=== PATIENT | female | born 1995 | race Caucasian/White ===

== ENCOUNTER 2019-01-09 18:15 | Emergency (ER) | payer OTHER ==
[~2019-01-09] VITALS: Ht 172.7 cm; Wt 62.0 kg
[~2019-01-09 18:15] MED LIST: IBUP400T18 PO; PHEN100T82 PO; SULF1TAB24 PO
--- NOTE | 2019-01-09 18:18 | ED.ADGEN ---
Past History Past Medical History: No Pertinent History, Depression, Ovarian Cyst, UTI Past Surgical History: Tonsillectomy, Other Additional Past Surgical Histo: tear ducts; wisdom teeth; lt knee repair of meniscus with ham string graft. Smoking: Non-smoker Alcohol Use: None Drug Use: None Adult General Chief Complaint Chief Complaint ".. Dr. Sultana office sent me over for a CT of my abdomen .. to make sure I don't have an appendix..." [facility] HPI Patient is a 23 year old female who presents with above hx and complaints of abdomen pain epigastric and right lower quadrant. Patient denies any intake bad food. Patient denies any specific ill contacts. Patient denies any travel. Patient denies any history of immunosuppression. Patient has had 1 previous . Patient does have history of some dysuria but was told she did not have a UTI. Patient has had a normal stool today. No history of trauma. No history of colitis with her family members. Does have cramping with her periods. Patient normally healthy. Follows with Dr. Sultana. Review of Systems Review of Systems Constitutional: Denies fever or chills [] Eyes: Denies change in visual acuity, redness, or eye pain [] HENT: Denies nasal congestion or sore throat [] Respiratory: Denies cough or shortness of breath [] Cardiovascular: No additional information not addressed in HPI [] GI: Complaints epigastric and right lower abdominal pain,. Denies , vomiting, bloody stools or diarrhea [] Pt. has had some nausea today : Denies dysuria or hematuria [] Musculoskeletal: Denies back pain or joint pain [] Integument: Denies rash or skin lesions [] Neurologic: Denies headache, focal weakness or sensory changes [] Endocrine: Denies polyuria or polydipsia [] All other systems were reviewed and found to be within normal limits, except as documented in this note. Family History Family History Noncontributory Current Medications Current Medications Current Medications Medications (Trade) Dose Ordered Sig/Lisa Start Time Stop Time Status Last Admin Dose Admin Ceftriaxone Sodium 1 gm/ Sodium Chloride 50 ml @ 100 mls/hr 1X ONCE 01/09/19 21:15 01/09/19 21:44 DC 01/09/19 21:47 100 MLS/HR Ceftriaxone Sodium (Rocephin) 1 gm STK-MED ONCE 01/09/19 21:40 01/09/19 21:41 DC Famotidine (Pepcid Vial) 20 mg 1X ONCE 01/09/19 21:45 01/09/19 21:46 DC 01/09/19 21:46 20 MG Iohexol (Omnipaque 240 Mg/ml) 30 ml 1X ONCE 01/09/19 19:45 01/09/19 19:46 DC 01/09/19 20:41 30 ML Iohexol (Omnipaque 300 Mg/ml) 75 ml 1X ONCE 01/09/19 19:45 01/09/19 19:46 DC 01/09/19 20:40 75 ML Lactated Ringer's 1,000 ml @ 1,000 mls/hr Q1H 01/09/19 18:25 01/09/19 19:24 DC 01/09/19 18:50 1,000 MLS/HR Magnesium Hydroxide (Milk Of Magnesia) 2,400 mg 1X ONCE 01/09/19 21:15 01/09/19 21:16 DC 01/09/19 21:46 2,400 MG Sodium Chloride 50 ml @ As Directed STK-MED ONCE 01/09/19 21:39 01/09/19 21:40 DC Allergies Allergies Allergies Coded Allergies Type Severity Reaction Last Updated Verified No Known Drug Allergies 08/20/14 No Physical Exam Physical Exam Constitutional: Well developed, well nourished, no acute distress, non-toxic appearance. [] HENT: Normocephalic, atraumatic, bilateral external ears normal, oropharynx moist, no oral exudates, nose normal. [] Eyes: PERRLA, EOMI, conjunctiva normal, no discharge. [] Neck: Normal range of motion, no tenderness, supple, no stridor. [] Cardiovascular:Heart rate regular rhythm, no murmur [] Lungs & Thorax: Bilateral breath sounds clear to auscultation [] Abdomen: Bowel sounds normal, soft, mild epigastric and mid right abdomen tenderness, no masses, no pulsatile masses. [] Declines vaginal or rectal exams this time. Abdomen is mildly distended Skin: Warm, dry, no erythema, no rash. [] Back: No tenderness, no CVA tenderness. [] Extremities: No tenderness, no cyanosis, no clubbing, ROM intact, no edema. [] No psoas sign. Patient is able to jump up and down without pain Neurologic: Alert and oriented X 3, normal motor function, normal sensory function, no focal deficits noted. [] Psychologic: Affect anxious, judgement normal, mood normal. [] Current Patient Data Vital Signs Vital Signs Date Time Temp Pulse Resp B/P (MAP) Pulse Ox O2 Delivery O2 Flow Rate FiO2 01/09/19 22:05 98.2 73 16 113/67 (82) 99 Room Air Lab Results Laboratory Tests Test 01/09/19 18:43 01/09/19 18:47 01/09/19 18:56 White Blood Count 3.7 x10^3/uL (4.0-11.0) L Red Blood Count 5.45 x10^6/uL (3.50-5.40) H Hemoglobin 14.2 g/dL (12.0-15.5) Hematocrit 43.0 % (36.0-47.0) Mean Corpuscular Volume 79 fL (79-100) Mean Corpuscular Hemoglobin 26 pg (25-35) Mean Corpuscular Hemoglobin Concent 33 g/dL (31-37) Red Cell Distribution Width 15.6 % (11.5-14.5) H Platelet Count 197 x10^3/uL (140-400) Neutrophils (%) (Auto) 64 % (31-73) Lymphocytes (%) (Auto) 21 % (24-48) L Monocytes (%) (Auto) 14 % (0-9) H Eosinophils (%) (Auto) 1 % (0-3) Basophils (%) (Auto) 0 % (0-3) Neutrophils # (Auto) 2.4 x10^3uL (1.8-7.7) Lymphocytes # (Auto) 0.8 x10^3/uL (1.0-4.8) L Monocytes # (Auto) 0.5 x10^3/uL (0.0-1.1) Eosinophils # (Auto) 0.0 x10^3/uL (0.0-0.7) Basophils # (Auto) 0.0 x10^3/uL (0.0-0.2) Sodium Level 137 mmol/L (136-145) Potassium Level 3.8 mmol/L (3.5-5.1) Chloride Level 100 mmol/L (98-107) Carbon Dioxide Level 27 mmol/L (21-32) Anion Gap 10 (6-14) Blood Urea Nitrogen 16 mg/dL (7-20) Creatinine 0.8 mg/dL (0.6-1.0) Estimated GFR (Cockcroft-Gault) 88.9 Glucose Level 89 mg/dL (70-99) Calcium Level 9.1 mg/dL (8.5-10.1) Total Bilirubin 3.7 mg/dL (0.2-1.0) H Direct Bilirubin 0.2 mg/dL (0.0-0.2) Aspartate Amino Transferase (AST) 19 U/L (15-37) Alanine Aminotransferase (ALT) 20 U/L (14-59) Alkaline Phosphatase 58 U/L (46-116) Total Protein 7.5 g/dL (6.4-8.2) Albumin 4.1 g/dL (3.4-5.0) Amylase Level 27 U/L (25-115) Lipase 87 U/L (73-393) Urine Collection Type Void Urine Color Straw Urine Clarity Hazy Urine pH 6.5 Urine Specific [place] 1.025 Urine Protein 30 mg/dl (NEG-TRACE) Urine Glucose (UA) Neg mg/dL (NEG) Urine Ketones (Stick) Neg mg/dL (NEG) Urine Blood Neg (NEG) Urine Nitrite Neg (NEG) Urine Bilirubin Neg (NEG) Urine Urobilinogen Dipstick 2 mg/dL (0.2 mg/dL) Urine Leukocyte Esterase Small (NEG) Urine RBC Rare /HPF (0-2) Urine WBC 5-10 /HPF (0-4) Urine Squamous Epithelial Cells Mod /LPF Urine Bacteria Few /HPF (0-FEW) Urine Mucus Mod /LPF Urine Opiates Screen Neg (NEG) Urine Methadone Screen Neg (NEG) Urine Barbiturates Neg (NEG) Urine Phencyclidine Screen Neg (NEG) Urine Amphetamine/Methamphetamine Neg (NEG) Urine Benzodiazepines Screen Neg (NEG) Urine Cocaine Screen Neg (NEG) Urine Cannabinoids Screen Neg (NEG) Urine Ethyl Alcohol Neg (NEG) POC Urine HCG, Qualitative hcg negative (Negative) EKG EKG [] Radiology/Procedures Radiology/Procedures My interpretation of acute abd. shows no acute cardiopulmonary findings. No free air under the diaphragm. Nonspecific bowel gas pattern there is stool in the colon. CT of abdomen shows no acute surgical pathology. Appendix appears normal. There is right ovarian cyst 1.9- complex. There is possible ureterectasis due to UTI or congenital variant. No obvious acute surgical findings. See formal report for details. Course & Med Decision Making Course & Med Decision Making Pertinent Labs and Imaging studies reviewed. (See chart for details). Maintain on a clear fluid diet for the next 2 days. No solids or milk products. Must allow bowel rest. Follow-up [facility] for an ultrasound of right ovarian complex cyst. Take Keflex 500x3 times a day. Follow-up urinary cultures. Tylenol and ibuprofen for pain. Return if any concerns. Keep follow-up with Dr. Sultana. [] Final Impression Final Impression 1. Abdomen Pain 2. UTI 3. Constipation 4. Elevated Monocytes- Viral Syndrome 5. Possible ureterectasis 6. Corpus Luteum cyst 1.9 cm ? Rt. Ovary 7. Possible history consistent with endometriosis [] Dragon Disclaimer Dragon Disclaimer This electronic medical record was generated, in whole or in part, using a voice recognition dictation system. Dragon Disclaimer This chart was dictated in whole or in part using Voice Recognition software in a busy, high-work load, and often noisy Emergency Department environment. It may contain unintended and wholly unrecognized errors or omissions. Discharge Summary Visit Information Final Diagnosis Problems Medical Problems: (1) Pain in the abdomen Status: Acute Brief Hospital Course Allergies Allergies Coded Allergies Type Severity Reaction Last Updated Verified No Known Drug Allergies 08/20/14 No Vital Signs Vital Signs Date Time Temp Pulse Resp B/P (MAP) Pulse Ox O2 Delivery O2 Flow Rate FiO2 01/09/19 22:05 98.2 73 16 113/67 (82) 99 Room Air Lab Results Laboratory Tests Test 01/09/19 18:43 01/09/19 18:47 01/09/19 18:56 White Blood Count 3.7 x10^3/uL (4.0-11.0) Red Blood Count 5.45 x10^6/uL (3.50-5.40) Hemoglobin 14.2 g/dL (12.0-15.5) Hematocrit 43.0 % (36.0-47.0) Mean Corpuscular Volume 79 fL (79-100) Mean Corpuscular Hemoglobin 26 pg (25-35) Mean Corpuscular Hemoglobin Concent 33 g/dL (31-37) Red Cell Distribution Width 15.6 % (11.5-14.5) Platelet Count 197 x10^3/uL (140-400) Neutrophils (%) (Auto) 64 % (31-73) Lymphocytes (%) (Auto) 21 % (24-48) Monocytes (%) (Auto) 14 % (0-9) Eosinophils (%) (Auto) 1 % (0-3) Basophils (%) (Auto) 0 % (0-3) Neutrophils # (Auto) 2.4 x10^3uL (1.8-7.7) Lymphocytes # (Auto) 0.8 x10^3/uL (1.0-4.8) Monocytes # (Auto) 0.5 x10^3/uL (0.0-1.1) Eosinophils # (Auto) 0.0 x10^3/uL (0.0-0.7) Basophils # (Auto) 0.0 x10^3/uL (0.0-0.2) Sodium Level 137 mmol/L (136-145) Potassium Level 3.8 mmol/L (3.5-5.1) Chloride Level 100 mmol/L (98-107) Carbon Dioxide Level 27 mmol/L (21-32) Anion Gap 10 (6-14) Blood Urea Nitrogen 16 mg/dL (7-20) Creatinine 0.8 mg/dL (0.6-1.0) Estimated GFR (Cockcroft-Gault) 88.9 Glucose Level 89 mg/dL (70-99) Calcium Level 9.1 mg/dL (8.5-10.1) Total Bilirubin 3.7 mg/dL (0.2-1.0) Direct Bilirubin 0.2 mg/dL (0.0-0.2) Aspartate Amino Transf (AST/SGOT) 19 U/L (15-37) Alanine Aminotransferase (ALT/SGPT) 20 U/L (14-59) Alkaline Phosphatase 58 U/L (46-116) Total Protein 7.5 g/dL (6.4-8.2) Albumin 4.1 g/dL (3.4-5.0) Amylase Level 27 U/L (25-115) Lipase 87 U/L (73-393) Urine Collection Type Void Urine Color Straw Urine Clarity Hazy Urine pH 6.5 Urine Specific [place] 1.025 Urine Protein 30 mg/dl (NEG-TRACE) Urine Glucose (UA) Neg mg/dL (NEG) Urine Ketones (Stick) Neg mg/dL (NEG) Urine Blood Neg (NEG) Urine Nitrite Neg (NEG) Urine Bilirubin Neg (NEG) Urine Urobilinogen Dipstick 2 mg/dL (0.2 mg/dL) Urine Leukocyte Esterase Small (NEG) Urine RBC Rare /HPF (0-2) Urine WBC 5-10 /HPF (0-4) Urine Squamous Epithelial Cells Mod /LPF Urine Bacteria Few /HPF (0-FEW) Urine Mucus Mod /LPF Urine Opiates Screen Neg (NEG) Urine Methadone Screen Neg (NEG) Urine Barbiturates Neg (NEG) Urine Phencyclidine Screen Neg (NEG) Urine Amphetamine/Methamphetamine Neg (NEG) Urine Benzodiazepines Screen Neg (NEG) Urine Cocaine Screen Neg (NEG) Urine Cannabinoids Screen Neg (NEG) Urine Ethyl Alcohol Neg (NEG) Bedside Urine HCG, Qualitative hcg negative (Negative) Brief Hospital Course Ms. Wells is a 23 old female who presented with abdomen pain. Discharge Information Condition at Discharge: Improved, Stable Disposition/Orders: D/C to Home Dischare Medications Current Medications Lactated Ringer's 1,000 ml @ 1,000 mls/hr Q1H IV Last administered on at 18:50; Admin Dose 1,000 MLS/HR; Start 01/09/19 at 18:25; Stop 01/09/19 at 19: 24; Status DC Iohexol (Omnipaque 300 Mg/ml) 75 ml 1X ONCE IV Last administered on 01/09/19at 20:40; Admin Dose 75 ML; Start 01/09/19 at 19:45; Stop 01/09/19 at 19:46; Status DC Iohexol (Omnipaque 240 Mg/ml) 30 ml 1X ONCE PO Last administered on 01/09/19at 20:41; Admin Dose 30 ML; Start 01/09/19 at 19:45; Stop 01/09/19 at 19:46; Status DC Magnesium Hydroxide (Milk Of Magnesia) 2,400 mg 1X ONCE PO Last administered on 01/09/19at 21:46; Admin Dose 2,400 MG; Start 01/09/19 at 21:15; Stop 01/09/19 at 21:16; Status DC Ceftriaxone Sodium 1 gm/ Sodium Chloride 50 ml @ 100 mls/hr 1X ONCE IV Last administered on 01/09/19at 21:47; Admin Dose 100 MLS/HR; Start 01/09/19 at 21:15; Stop 01/09/19 at 21:44; Status DC Famotidine (Pepcid Vial) 20 mg 1X ONCE IVP Last administered on 01/09/19at 21:46 ; Admin Dose 20 MG; Start 01/09/19 at 21:45; Stop 01/09/19 at 21:46; Status DC Sodium Chloride 50 ml @ As Directed STK-MED ONCE .ROUTE ; Start 01/09/19 at 21:39 ; Stop 01/09/19 at 21:40; Status DC Ceftriaxone Sodium (Rocephin) 1 gm STK-MED ONCE .ROUTE ; Start 01/09/19 at 21:40 ; Stop 01/09/19 at 21:41; Status DC Active Scripts Active Keflex (Cephalexin) 500 Mg Capsule 500 Mg PO TID 7 Days Reported Bactrim Ds Tablet (Sulfamethoxazole/Trimethoprim) 1 Each Tablet 1 Tab PO BID Pyridium (Phenazopyridine Hcl) 100 Mg Tablet 100 Mg PO PRN Q8HRS PRN Ibuprofen 400 Mg Tablet 200 Mg PO PRN MARIANO SANCHEZ MD Jan 09, 2019 18:18
[2019-01-09] MEDS ORDERED: IV RINGERS SOLUTION,LACTATED 1,000 ML IV SCH (18:25)
[2019-01-09 18:59] LABS: BASO % 0 % (0-3); EOS % 1 % (0-3); HEMOGLOBIN 14.2 g/dL (12.0-15.5); LYMPH # 0.8 x10^3/uL (1.0-4.8); LYMPH % 21 % (24-48); MEAN CORPUSCULAR HEMOGLOBIN 26 pg (25-35); MEAN CORPUSCULAR HGB CONC 33 g/dL (31-37); MEAN CORPUSCULAR VOLUME 79 fL (79-100); MONO # 0.5 x10^3/uL (0.0-1.1); MONO % 14 % (0-9); NEUT # 2.4 x10^3uL (1.8-7.7); NEUT % 64 % (31-73); PLATELET COUNT 197 x10^3/uL (140-400); RED BLOOD COUNT 5.45 x10^6/uL (3.50-5.40); RED CELL DISTRIBUTION WIDTH 15.6 % (11.5-14.5); WHITE BLOOD COUNT 3.7 x10^3/uL (4.0-11.0)
[2019-01-09 19:16] LABS: ALBUMIN 4.1 g/dL (3.4-5.0); CALCIUM 9.1 mg/dL (8.5-10.1); CREATININE 0.8 mg/dL (0.6-1.0); DIRECT BILIRUBIN 0.2 mg/dL (0.0-0.2); GFR 88.9; POTASSIUM 3.8 mmol/L (3.5-5.1); TOTAL BILIRUBIN 3.7 mg/dL (0.2-1.0); TOTAL PROTEIN 7.5 g/dL (6.4-8.2)
[2019-01-09 19:38] LABS: BARBITURATES NEG (NEG); BENZODIAZEPINES NEG (NEG); CANNABINOIDS NEG (NEG); COCAINE NEG (NEG); METHADONE NEG (NEG); OPIATES NEG (NEG); PHENCYCLIDINE NEG (NEG)
[2019-01-09 19:42] LABS: BILIRUBIN,URINE NEG (NEG); CLARITY,URINE HAZY; COLOR,URINE STRAW; GLUCOSE,URINE NEG (NEG)
[2019-01-09 19:43] LABS: BACTERIA,URINE FEW /HPF (0-FEW); NITRITE,URINE NEG (NEG); RBC,URINE RARE /HPF (0-2); SQUAMOUS EPITHELIAL CELL,UR MOD /LPF; UROBILINOGEN,URINE 2 mg/dL (0.2 mg/dL)
[2019-01-09 19:45] LABS: AMPHETAMINE/METHAMPHETAMINE NEG (NEG)
[2019-01-09] MEDS ORDERED: IOHEXOL 300 MG/ML 75 ML VIAL. IV ONE (19:45)
[2019-01-09] MEDS ORDERED: IOHEXOL 240 MG/ML 50ML VIAL. PO ONE (19:45)
[2019-01-09] MEDS ORDERED: MAGNESIUM HYDROXIDE 2,400 MG/30 ML ORAL.SUSP. PO ONE (21:15)
--- NOTE | 2019-01-09 21:36 | RAD ---
CT study of the abdomen and pelvis with contrast Clinical indications: Right lower quadrant pain for 2 days which is worsening. TECHNIQUE: After IV infusion of 75 cc of Omnipaque 300, helical CT scanning of the abdomen and pelvis was performed. GI contrast was administered per mouth. PQRS compliance Statement One or more of the following individualized dose reduction techniques were utilized for this study: 1. Automated exposure control 2. Adjustment of the mA and/or kV according to patient size 3. Use of iterative reconstruction technique FINDINGS: The liver and spleen and pancreas are normal. The gallbladder is normal and no biliary ductal dilatation is seen. No adrenal mass is evident. Both kidneys are normal without hydronephrosis or hydroureter. Urinary bladder wall is smooth. There is an enhancing corpus luteum cyst of the right ovary which measures 1.9 cm in size. There is a small amount of free fluid within the cul-de-sac. There is dilatation of the left ureter down to the level of UVJ. No stone is evident. Similar finding is seen on the right side. The proximal ureter on either side is is not dilated and there is no hydronephrosis on either side. Therefore, this may represent ureterectasis secondary to urinary tract infection or could be a congenital variant. No focal aneurysmal dilatation of the abdominal aorta is seen. No enlarged abdominal or pelvic lymphadenopathy is evident. The appendix is normal. The terminal ileum is unremarkable. No obstructive bowel pattern is evident. No bowel wall thickening is seen. No free air or free fluid or mesenteric edema is seen. No lung base consolidation is evident. No lytic process is seen. IMPRESSION: There is dilatation of the mid and distal ureters on both sides down to the level of UVJ. Urinary bladder is not abnormally distended. No urinary tract stone is evident. Therefore, this may represent ureterectasis which may be seen with urinary tract infection or may represent a congenital variant. 1.9 cm enhancing corpus luteum of the right ovary. Small amount of physiologic free fluid is seen within the cul-de-sac. As with any cystic lesion, correlation with a test is recommended to exclude an ectopic . Electronically signed by: Eric Burton MD (01/09/2019 9:33 PM) [facility]
[2019-01-09] MEDS ORDERED: IV NORMAL SALINE 50ML 50 ML ONE (21:39)
[2019-01-09] MEDS ORDERED: cefTRIAXone SODIUM 1 GM VIAL ONE (21:40)
[2019-01-09] MEDS ORDERED: FAMOTIDINE 20 MG/2 ML VIAL IVP ONE (21:45)
--- NOTE | 2019-01-09 21:57 | RAD ---
2 view abdominal series and PA view chest x-ray Clinical indications: Right lower quadrant pain for 2 days which has worsened today. FINDINGS: No obstructive bowel pattern is seen. No air-fluid levels or free intraperitoneal air is seen. Osseous structures are intact. Multiple punctate calcifications are seen within the left side of the anatomic pelvis which are present within the colon and may be related to medication. Chest x-ray demonstrates no acute lung infiltrate or pleural effusion or pulmonary edema or pneumothorax. The heart size and pulmonary vasculature and mediastinum and both deepika are unremarkable. IMPRESSION: No acute radiographic abnormality. Electronically signed by: Eric Burton MD (01/09/2019 9:54 PM) [facility]
[2019-01-09] MEDS ORDERED: CEPH-264 PO (21:59)
[2019-01-09 22:05] VITALS: BP 113/67
== END 2019-01-09 22:15 | disposition home or self-care (01) ==
LOC: ER 18:15
DX: N39.0 Urinary tract infection, site not specified (principal); K59.00 Constipation, unspecified; B34.9 Viral infection, unspecified; D72.821 Monocytosis (symptomatic); N83.291 Other ovarian cyst, right side; F32.9 Major depressive disorder, single episode, unspecified; Z87.440 Personal history of urinary (tract) infections
CPT/HCPCS: 36415; 74022; 74177; 80048; 80076; 80307; 81001; 81025; 82150; 83690; 85025; 86705; 86709; 86803; 87340; 96365; 96375; 99284; J0696; J3490; J7120; Q9966; Q9967; 87086

== ENCOUNTER 2019-06-10 10:44 | Emergency (ER) | payer MEDICAID, OTHER ==
[~2019-06-10] VITALS: Ht 172.7 cm; Wt 62.0 kg
[~2019-06-10 10:44] MED LIST changes: +CEPH-264 PO
[2019-06-10 11:43] LABS: BACTERIA,URINE 0 /HPF (0-FEW); BILIRUBIN,URINE NEG (NEG); CLARITY,URINE HAZY; COLOR,URINE STRAW; GLUCOSE,URINE NEG (NEG); NITRITE,URINE NEG (NEG); RBC,URINE RARE /HPF (0-2); SQUAMOUS EPITHELIAL CELL,UR OCC /LPF; UROBILINOGEN,URINE 0.2 mg/dL (0.2 mg/dL); WBC,URINE 0 /HPF (0-4)
[2019-06-10] MEDS ORDERED: IV NORMAL SALINE 1,000ML 1,000 ML IV SCH (12:00)
--- NOTE | 2019-06-10 12:36 | PHYS DOC ---
Past History Past Medical History: No Pertinent History, Depression, Ovarian Cyst, UTI Past Surgical History: Tonsillectomy Additional Past Surgical Histo: tear ducts; wisdom teeth; lt knee repair of meniscus with ham string graft. Smoking: Non-smoker Alcohol Use: None Drug Use: None Adult General Chief Complaint Chief Complaint: VAGINAL BLEEDING HPI HPI Patient is a 23 year old female who presents with complaint of vaginal bleeding. The patient is approximately 8 weeks with last menstrual period April 25, 2019. Patient notes that she has taken a home test on multiple occasions over the past couple weeks which have been positive. The patient has an appointment with [facility] in 2 days, however she notes that she started having vaginal bleeding that started 2 days ago. She states that started with light spotting that initially slowed down, however she states that this morning she started having worsening bleeding comparable to a menstrual cycle. Has had light cramping. Denies any lightheadedness or dizziness and denies any abdominal pain currently. States that she has not had any previous complications with her prior . Denies any other symptoms currently. Review of Systems Review of Systems Constitutional: Denies fever or chills [] Eyes: Denies change in visual acuity, redness, or eye pain [] HENT: Denies nasal congestion or sore throat [] Respiratory: Denies cough or shortness of breath [] Cardiovascular: Denies chest pain or edema[] GI: Denies abdominal pain, nausea, vomiting, bloody stools or diarrhea [] : Vaginal bleeding, pelvic cramping[] Musculoskeletal: Denies back pain or joint pain [] Integument: Denies rash or skin lesions [] Neurologic: Denies headache, focal weakness or sensory changes [] All other systems were reviewed and found to be within normal limits, except as documented in this note. Current Medications Current Medications Current Medications Medications (Trade) Dose Ordered Sig/Lisa Start Time Stop Time Status Last Admin Dose Admin Sodium Chloride 1,000 ml @ 1,000 mls/hr Q1H 06/10/19 12:00 06/10/19 12:59 06/10/19 12:22 1,000 MLS/HR Allergies Allergies Allergies Coded Allergies Type Severity Reaction Last Updated Verified No Known Drug Allergies 08/20/14 No Physical Exam Physical Exam Constitutional: Well developed, well nourished, no acute distress, non-toxic appearance. [] HENT: Normocephalic, atraumatic, bilateral external ears normal, oropharynx moist, no oral exudates, nose normal. [] Eyes: PERRLA, EOMI, conjunctiva normal, no discharge. [] Neck: Normal range of motion, no tenderness, supple, no stridor. [] Cardiovascular:Heart rate regular rhythm, no murmur [] Lungs & Thorax: Bilateral breath sounds clear to auscultation [] Abdomen: Bowel sounds normal, soft, no tenderness, no masses, no pulsatile masses. [] Skin: Warm, dry, no erythema, no rash. [] Back: No tenderness, no CVA tenderness. [] Extremities: No tenderness, no cyanosis, no clubbing, ROM intact, no edema. [] Neurologic: Alert and oriented X 3, normal motor function, normal sensory function, no focal deficits noted. [] Current Patient Data Vital Signs Vital Signs Date Time Temp Pulse Resp B/P (MAP) Pulse Ox O2 Delivery O2 Flow Rate FiO2 06/10/19 11:35 98.1 98 18 98 Room Air Lab Results Laboratory Tests Test 06/10/19 10:56 06/10/19 11:14 Urine Collection Type Unknown Urine Color Straw Urine Clarity Hazy Urine pH 7.0 Urine Specific [place] 1.010 Urine Protein Neg (NEG-TRACE) Urine Glucose (UA) Neg mg/dL (NEG) Urine Ketones (Stick) Neg mg/dL (NEG) Urine Blood Mod (NEG) Urine Nitrite Neg (NEG) Urine Bilirubin Neg (NEG) Urine Urobilinogen Dipstick 0.2 mg/dL (0.2 mg/dL) Urine Leukocyte Esterase Neg (NEG) Urine RBC Rare /HPF (0-2) Urine WBC 0 /HPF (0-4) Urine Squamous Epithelial Cells Occ /LPF Urine Bacteria 0 /HPF (0-FEW) POC Urine HCG, Qualitative hcg positive (Negative) EKG EKG Not performed[] Radiology/Procedures Radiology/Procedures [address] [address] IMAGING REPORT Signed PATIENT: JUAN KEITH ACCOUNT: [id number] : 1995 LOCATION: ER AGE: 23 SEX: F EXAM STATUS: REG ER ORD. PHYSICIAN: OMAR GRAFF MD REASON: vaginal bleeding, LMP 04/25/19 PROCEDURE: OB <14 WKS W/TV OB <14 WKS W/TV History: Vaginal bleeding. Reportedly the patient has no pain. Comparison: None. Technique: Grayscale and color Doppler imaging of the pelvis was performed using transvaginal technique. Findings: The uterus measures 9.9 x 5.6 x 4.7 cm in length. No evidence of gestational sac within the endometrial canal. Heterogeneous appearance of the endometrium. The endometrium measures up to 0.7 cm nabothian cyst is identified. Right ovary measures 4.0 x 2.4 x 3.7 cm. There is a complicated heterogeneous lesion within the right ovary measures 1.7 x 1.1 x 1.1 cm. Left ovary measures 3.0 x 2.7 x 1.4 cm and is unremarkable. No adnexal masses are seen. Physiatric fluid within the pelvis. IMPRESSION: 1. No evidence of intrauterine gestational sac and heterogeneous appearance of the endometrium. 2. Heterogeneous lesion within the right ovary, most likely hemorrhagic follicle or corpus luteum. Recommend short-term ultrasound follow-up to exclude ectopic . Electronically signed by: Amor Lancaster DO (06/10/2019 2:23 PM) [id number] DICTATED AND SIGNED BY: AMOR LANCASTER DO DATE: 06/10/19 1423 CC: OMAR GRAFF MD; PEYTON DALE MD ~ [] Course & Med Decision Making Course & Med Decision Making Pertinent Labs and Imaging studies reviewed. (See chart for details) Patient was given IV fluids in the emergency department. Patient found to be O- . RhoGAM was ordered and administered in the emergency department. Patient's ultrasound does not confirm intrauterine . Of note, an abnormal cyst was mentioned present in the area of the right ovary. The patient does not have right adnexal tenderness at this time. However, this raises the possibility of an ectopic . Vital signs are stable at this time. The patient states that she has an appointment with her OB doctor in 2 days. Advised to keep this appointment as scheduled. Recommended the patient have a repeat hCG level taken at her visit. Recommended return to the emergency department for any worsening symptoms. Patient was understanding and in agreement with treatment plan.[] Dragon Disclaimer Dragon Disclaimer This electronic medical record was generated, in whole or in part, using a voice recognition dictation system. Departure Departure: Impression: Primary Impression: Positive test Additional Impressions: Vaginal bleeding Right ovarian cyst Disposition: HOME, SELF-CARE Condition: STABLE Referrals: PEYTON DALE MD (PCP) Patient Instructions: Miscarriage, RhoGAM Additional Instructions: Follow-up with your [facility] [employer] [facility] in 2 days as scheduled. Your quantitative hCG level today was 2384. You were given RhoGAM at today's visit. Return to the emergency department for any worsening symptoms. Problem Qualifiers OMAR GRAFF MD Jun 10, 2019 12:36
[2019-06-10 12:38] LABS: BASO % 1 % (0-3); EOS % 1 % (0-3); HEMATOCRIT 40.8 % (36.0-47.0); HEMOGLOBIN 13.2 g/dL (12.0-15.5); LYMPH # 1.3 x10^3/uL (1.0-4.8); LYMPH % 20 % (24-48); MEAN CORPUSCULAR HEMOGLOBIN 26 pg (25-35); MEAN CORPUSCULAR HGB CONC 33 g/dL (31-37); MEAN CORPUSCULAR VOLUME 81 fL (79-100); MONO # 0.6 x10^3/uL (0.0-1.1); MONO % 10 % (0-9); NEUT # 4.3 x10^3uL (1.8-7.7); NEUT % 69 % (31-73); PLATELET COUNT 192 x10^3/uL (140-400); RED BLOOD COUNT 5.03 x10^6/uL (3.50-5.40); RED CELL DISTRIBUTION WIDTH 17.2 % (11.5-14.5); WHITE BLOOD COUNT 6.3 x10^3/uL (4.0-11.0)
[2019-06-10 12:50] LABS: ALBUMIN/GLOBULIN RATIO 1.3 (1.0-1.7); CALCIUM 8.9 mg/dL (8.5-10.1); CREATININE 0.8 mg/dL (0.6-1.0); GFR 88.9; POTASSIUM 3.7 mmol/L (3.5-5.1); TOTAL BILIRUBIN 1.3 mg/dL (0.2-1.0); TOTAL PROTEIN 7.1 g/dL (6.4-8.2)
--- NOTE | 2019-06-10 14:26 | RAD ---
OB <14 WKS W/TV History: Vaginal bleeding. Reportedly the patient has no pain. Comparison: None. Technique: Grayscale and color Doppler imaging of the pelvis was performed using transvaginal technique. Findings: The uterus measures 9.9 x 5.6 x 4.7 cm in length. No evidence of gestational sac within the endometrial canal. Heterogeneous appearance of the endometrium. The endometrium measures up to 0.7 cm nabothian cyst is identified. Right ovary measures 4.0 x 2.4 x 3.7 cm. There is a complicated heterogeneous lesion within the right ovary measures 1.7 x 1.1 x 1.1 cm. Left ovary measures 3.0 x 2.7 x 1.4 cm and is unremarkable. No adnexal masses are seen. Physiatric fluid within the pelvis. IMPRESSION: 1. No evidence of intrauterine gestational sac and heterogeneous appearance of the endometrium. 2. Heterogeneous lesion within the right ovary, most likely hemorrhagic follicle or corpus luteum. Recommend short-term ultrasound follow-up to exclude ectopic . Electronically signed by: Amor Lancaster DO (06/10/2019 2:23 PM) [id number]
[2019-06-10 14:30] VITALS: BP 127/62
== END 2019-06-10 15:48 | disposition home or self-care (01) ==
LOC: ER 10:44
DX: O46.91 Antepartum hemorrhage, unspecified, first trimester (principal); O34.81 Maternal care for other abnormalities of pelvic organs, first trimester; N83.201 Unspecified ovarian cyst, right side; Z3A.00 Weeks of gestation of pregnancy not specified
CPT/HCPCS: 36415; 36430; 76801; 76817; 80053; 81001; 81025; 83735; 84702; 85025; 86850; 86900; 86901; 99285; J2791; J7030

== ENCOUNTER 2021-12-13 10:33 | Emergency (ER) | payer MEDICAID ==
[~2021-12-13] VITALS: Ht 172.7 cm; Wt 75.5 kg
--- NOTE | 2021-12-13 11:07 | PHYS DOC ---
Past History Past Medical History: No Pertinent History, Depression, Ovarian Cyst, UTI (HUMBERTO OLIVAS BUTTONHOLE FACER) Past Surgical History: Tonsillectomy Additional Past Surgical Histo: tear ducts; wisdom teeth; lt knee repair of meniscus with ham string graft. (HUMBERTO OLIVAS APRN) Smoking: Non-smoker Alcohol Use: None Drug Use: None (HUMBERTO OLIVAS APRN) Adult General Chief Complaint Chief Complaint: VOMITING IN HPI HPI Patient is a 25-year-old female patient 4 para 3 currently 8 weeks pregn ant presenting today complaining of nausea and vomiting in that began a week ago. Patient denies any abdominal pain, vaginal bleeding, back pain. She states she was seen by the PCP last week but her symptoms were not present. She states she called the [facility] but they told her this morning she has to be seen in the emergency room and be given a liter of fluid before they can give her an appointment in the office. (HUMBERTO OLIVAS APRN) Review of Systems Review of Systems Constitutional: Denies fever or chills [] Eyes: Denies change in visual acuity, redness, or eye pain [] HENT: Denies nasal congestion or sore throat [] Respiratory: Denies cough or shortness of breath [] Cardiovascular: No additional information not addressed in HPI [] GI: Reports nausea and vomiting in denies abdominal pain, bloody stools or diarrhea [] : Denies dysuria or hematuria [] Musculoskeletal: Denies back pain or joint pain [] Integument: Denies rash or skin lesions [] Neurologic: Denies headache, focal weakness or sensory changes [] All other systems were reviewed and found to be within normal limits, except as documented in this note. (HUMBERTO OLIVAS [employer] FACER) Current Medications Current Medications Current Medications Medications (Trade) Dose Ordered Sig/Lisa Start Time Stop Time Status Last Admin Dose Admin Ondansetron HCl (Zofran) 4 mg 1X ONCE 12/13/21 11:15 12/13/21 11:16 UNV Sodium Chloride 1,000 ml @ 1,000 mls/hr 1X ONCE 12/13/21 11:15 12/13/21 12:14 UNV (HUMBERTO OLIVAS [employer] FACER) Allergies Allergies Allergies Coded Allergies Type Severity Reaction Last Updated Verified No Known Drug Allergies 12/13/21 No (HUMBERTO OLIVAS [employer] FACER) Physical Exam Physical Exam Constitutional: Well developed, well nourished, no acute distress, non-toxic appearance. [] HENT: Normocephalic, atraumatic, bilateral external ears normal, oropharynx moist, no oral exudates, nose normal. [] Eyes: PERRLA, EOMI, conjunctiva normal, no discharge. [] Neck: Normal range of motion, no tenderness, supple, no stridor. [] Cardiovascular:Heart rate regular rhythm, no murmur [] Lungs & Thorax: Bilateral breath sounds clear to auscultation [] Abdomen: Bowel sounds normal, soft, no tenderness, no masses, no pulsatile masses. [] Skin: Warm, dry, no erythema, no rash. [] Back: No tenderness, no CVA tenderness. [] Extremities: No tenderness, no cyanosis, no clubbing, ROM intact, no edema. [] Neurologic: Alert and oriented X 3, normal motor function, normal sensory function, no focal deficits noted. [] Psychologic: Affect normal, judgement normal, mood normal. [] (HUMBERTO OLIVAS [employer] FACER) Current Patient Data Vital Signs Vital Signs Date Time Temp Pulse Resp B/P (MAP) Pulse Ox O2 Delivery O2 Flow Rate FiO2 12/13/21 10:48 97.5 78 18 119/60 (79) 100 (HUMBERTO OLIVAS [employer] FACER) EKG EKG [] (HUMBERTO OLIVAS [employer] FACER) Radiology/Procedures Radiology/Procedures [] (HUMBERTO OLIVAS [employer] FACER) Heart Score C/O Chest Pain: N/A Risk Factors: Risk Factors: DM, Current or recent (<one month) smoker, HTN, HLP, family history of CAD, obesity. Risk Scores: Risk Factors: DM, Current or recent (<one month) smoker, HTN, HLP, family history of CAD, obesity. (HUMBERTO OLIVAS [employer] FACER) Course & Med Decision Making Course & Med Decision Making Pertinent Labs and Imaging studies reviewed. (See chart for details) This is a 25-year-old female currently 8 weeks presenting to the ED today complaining of nausea and vomiting in . Symptoms began a week ago. UA noted for dehydration. Also noted for infection but appears contaminated. She is . We will go ahead and start on Macrobid valuate for the culture to come back. She was given a liter of fluid and Zofran. Feeling better. She called her OB and was given appointment for today. (HUMBERTO OLIVAS APRN) Course & Med Decision Making I was the Attending physician on the above date of service of this patient. This patient was evaluated, examined, treated, and dispositioned from the emergency department by the mid-level practitioner. Although I was working at the time , no assistance was requested. Electronically signed, Dominik Leblanc DO (DOMINIK LEBLANC DO) Marycarmen Disclaimer Dragon Disclaimer This electronic medical record was generated, in whole or in part, using a voice recognition dictation system. (HUMBERTO OLIVAS APRN) Departure Departure: Impression: Primary Impression: Hyperemesis gravidarum Additional Impression: UTI (urinary tract infection) Disposition: HOME / SELF CARE / HOMELESS Condition: STABLE Referrals: PEYTON DALE MD (PCP) Follow-up with your SERVICE [facility]G TRA[facility]ER and primary care doctor in the next 7 days Patient Instructions: Diet - Hyperemesis Gravidarum, Hyperemesis Gravidarum, - Urinary Tract Infection Additional Instructions: You were seen for dehydration. Please take Zofran as needed for nausea or vomiting. Push fluids, follow-up with your SERVICE DOG TRA[facility]ER today. We sent zofran and medicines for UTI to your pharmacy. Take it as prescribed Scripts Ondansetron (ONDANSETRON ODT) 4 Mg Tab.rapdis 1 TAB PO PRN Q6-8HRS, #16 TAB Prov: HUMBERTO OLIVAS APRN 12/13/21 Nitrofurantoin Monohyd/M-Cryst (MACROBID 100 MG CAPSULE) 100 Mg Capsule 1 CAP PO BID for 7 Days, #14 CAP 0 Refills Prov: HUMBERTO OLIVAS APRN 12/13/21 Problem Qualifiers Additional Impression: UTI (urinary tract infection) Urinary tract infection type: site unspecified Hematuria presence: without hematuria Qualified Codes: N39.0 - Urinary tract infection, site not specified HUMBETRO OLIVAS APRN Dec 13, 2021 11:07 DOMINIK LEBLANC DO Dec 16, 2021 06:55
[2021-12-13] MEDS ORDERED: ONDANSETRON PF 4 MG/2 ML VIAL. IVP ONE (11:15)
[2021-12-13] MEDS ORDERED: IV NORMAL SALINE 1,000ML 1,000 ML IV ONE (11:15)
[2021-12-13 12:26] LABS: BILIRUBIN,URINE SMALL (NEG); CLARITY,URINE CLOUDY; COLOR,URINE YELLOW; GLUCOSE,URINE NEG (NEG); NITRITE,URINE NEG (NEG)
[2021-12-13 12:27] LABS: BACTERIA,URINE MANY /HPF (0-FEW); SQUAMOUS EPITHELIAL CELL,UR MANY /LPF
[2021-12-13 12:30] VITALS: BP 98/46
[2021-12-13] MEDS ORDERED: ONDA4TAB12 PO (12:34)
[2021-12-13] MEDS ORDERED: NITR100C62 PO (12:34)
== END 2021-12-13 12:45 | disposition home or self-care (01) ==
LOC: ER 10:33
DX: O21.0 Mild hyperemesis gravidarum (principal); O23.41 Unspecified infection of urinary tract in pregnancy, first trimester; N39.0 Urinary tract infection, site not specified; Z3A.08 8 weeks gestation of pregnancy
CPT/HCPCS: 81001; 87077; 87086; 87186; 96361; 96374; 99283; J2405; J7030